=== PATIENT | female | born 1990 | race Native Hawaiian/Other Pacific Islander ===

== ENCOUNTER 2017-04-15 10:56 | Observation (INO) | payer BC ==
[~2017-04-15] VITALS: Ht 154.9 cm; Wt 43.7 kg
[2017-04-15 13:30] LABS: PLATELET COUNT 183 K/uL (152-353)
[2017-04-15 13:44] VITALS: BP 106/77; TEMP 98.6; Ht 154.9 cm; Wt 43.7 kg
[2017-04-15 13:57] LABS: POTASSIUM 3.7 mmol/L (3.6-5.2); SODIUM 136 mmol/L (136-145)
--- NOTE | 2017-04-15 15:15 | NUR ---
PT TO OR FOR LAP APPI
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
--- NOTE | 2017-04-15 16:45 | NUR ---
PT REQUESTS TO BE SENT TO [facility] DUE TO BEING AN EMPLOYEE OF [facility]. CALLED AND NO ANSWER AT THIS TIME.
--- NOTE | 2017-04-15 17:30 | NUR ---
NEW ORDERS RECEIVED TO DISCHARGE PT AND THEN SEND HER BY POV TO [facility].
--- NOTE | 2017-04-15 17:49 | NUR ---
PT OUT VIA W/C PER JOSE MANUEL JEFFREY PCT WITH NAD.
== END 2017-04-15 17:50 | disposition home or self-care (01) ==
LOC: MED/SURG 10:56
PROVIDERS: ADMIT Student in an Organized Health Care Education/Training Program
DX: E86.0 Dehydration (principal); R10.31 Right lower quadrant pain
CPT/HCPCS: 36591; 80053; 84702; 85027; 87040; 96365; 96366; 96367; 96375; 99220; G0378; G0379; J0330; J0744; J2175; J2250; J3010; J3490